=== PATIENT | male | born 1960 | race African-American/Black ===

== ENCOUNTER 2020-12-30 22:56 | Emergency (ER) | payer MEDICAID ==
[~2020-12-30] VITALS: Ht 177.8 cm; Wt 81.6 kg
--- NOTE | 2020-12-30 23:16 | NUR ---
BIBS. TO ER BED 12. AAOX4. NOT IN RESP DISTRESS. AMBULATORY. CAME IN FOR FEELING WEAK AND FATIGUED FOR THE PAST 2 DAYS. PT REPORTS THAT HE HAS BEEN OUT AND RELATES IT TO THE HEAT. NO NEURO DEFICIT NOTED. AWAITING MD FOR EVAL.
--- NOTE | 2020-12-30 23:58 | NUR ---
[facility] PAGED, DR RESENDIZ ACCREDITATION COORDINATOR
--- NOTE | 2020-12-31 00:21 | NUR ---
COVID SWAB COLLECTED AND SENT TO LAB
[2020-12-31] MEDS ORDERED: IV NS 0.9% 1,000 ML BAG IV ONE (00:30)
--- NOTE | 2020-12-31 01:20 | NUR ---
Patient discharged to home in stable condition. Written and verbal after care instructions given. Patient verbalizes understanding of instruction.IV removed. Catheter intact and site benign. Pressure and 4x4 applied to site. No bleeding noted.pt ambulatory with a steady gait.
[2020-12-31 01:34] VITALS: BP 142/58
== END 2020-12-31 01:20 | disposition home or self-care (01) ==
LOC: ER 23:14
DX: R53.83 Other fatigue (principal); Z20.822 Contact with and (suspected) exposure to COVID-19; R94.31 Abnormal electrocardiogram [ECG] [EKG]; R00.0 Tachycardia, unspecified; I10 Essential (primary) hypertension; G89.29 Other chronic pain; M54.9 Dorsalgia, unspecified
CPT/HCPCS: 36415 ×2; 87426; 93005; 99284; C9803; J7040